=== PATIENT | female | born 1950 | race Asian ===

== ENCOUNTER 2018-08-10 18:35 | Emergency (ER) | payer SELFPAY, OTHER ==
[2018-08-10 20:17] LABS: URINE BLOOD (Dip) POC Trace-intact (NEGATIVE); URINE GLUCOSE (Dip) POC Negative (NEGATIVE); URINE KETONES (Dip) POC Negative (NEGATIVE); URINE LEUKOCYTE EST (Dip) POC Trace (NEGATIVE); URINE NITRITE (Dip) POC Negative (NEGATIVE); URINE TOTAL PROTEIN POC Negative (NEGATIVE)
== END 2018-08-10 20:56 | disposition home or self-care (01) ==
LOC: FTE 18:35
DX: R30.0 Dysuria (principal)
CPT/HCPCS: 81003; 99283